=== PATIENT | male | born 1990 | race Two or more races ===

== ENCOUNTER 2018-07-04 15:45 | Emergency (ER) | payer OTHER ==
[~2018-07-04] VITALS: Ht 180.3 cm; Wt 82.1 kg
[2018-07-04 17:38] VITALS: BP 154/93
== END 2018-07-04 17:38 | disposition home or self-care (01) ==
LOC: EME 15:45
DX: T78.40XA Allergy, unspecified, initial encounter (principal); S80.861A Insect bite (nonvenomous), right lower leg, initial encounter; W57.XXXA Bitten or stung by nonvenomous insect and other nonvenomous arthropods, initial encounter
CPT/HCPCS: 99281; 99283